=== PATIENT | female | born 1995 | race American Indian/Alaskan Native ===

== ENCOUNTER 2021-06-04 09:31 | Inpatient (IN) | payer OTHER ==
[~2021-06-04] VITALS: Ht 160 cm; Wt 64.0 kg
[2021-06-04] MEDS ORDERED: FOLIC ACID20 MG PO (09:45)
[2021-06-04] MEDS ORDERED: IRON325 MG PO (09:45)
== END 2021-06-08 11:14 | disposition home or self-care (01) | DRG 832 ==
LOC: OBS/DEL 09:31 → OB/GYN 06-05 10:58 → LDR 06-05 10:58 → OBS/DEL 06-05 10:58 → LDR 06-05 13:47 → OB/GYN 06-05 13:48
PROVIDERS: ADMIT Obstetrics & Gynecology Obstetrics; ATTEND Obstetrics & Gynecology Obstetrics
PROC: BY4CZZZ Ultrasonography of Second Trimester, Single Fetus (ICD-10-PCS; 2021-06-04)
PROC: 4A1HXFZ Monitoring of Products of Conception, Cardiac Rhythm, External Approach (ICD-10-PCS; principal; 2021-06-05)
DX: O23.42 Unspecified infection of urinary tract in pregnancy, second trimester (principal); N39.0 Urinary tract infection, site not specified; Z3A.26 26 weeks gestation of pregnancy

== ENCOUNTER 2021-08-31 18:00 | Inpatient (IN) | payer OTHER ==
[~2021-08-31] VITALS: Ht 160 cm; Wt 68.0 kg
[~2021-08-31 18:00] MED LIST: FOLIC ACID20 MG PO; IRON325 MG PO
== END 2021-09-03 14:05 | disposition home or self-care (01) | DRG 788 ==
LOC: LDR 18:00 → OB/GYN 18:00
PROVIDERS: ADMIT Obstetrics & Gynecology Obstetrics; ATTEND Obstetrics & Gynecology Obstetrics
PROC: 4A1HXCZ Monitoring of Products of Conception, Cardiac Rate, External Approach (ICD-10-PCS; 2021-08-31)
PROC: 10D00Z1 Extraction of Products of Conception, Low, Open Approach (ICD-10-PCS; principal; 2021-08-31 19:30)
DX: O76 Abnormality in fetal heart rate and rhythm complicating labor and delivery (principal); Z3A.39 39 weeks gestation of pregnancy; Z37.0 Single live birth; Z20.822 Contact with and (suspected) exposure to COVID-19